=== PATIENT | female | born 1990 | race Caucasian/White ===

== ENCOUNTER 2022-01-08 10:17 | Day surgery (SDC) | payer BC ==
[~2022-01-08] VITALS: Ht 160 cm; Wt 102.5 kg
[~2022-01-08 10:17] MED LIST: CEFUROXIME 1MG/0.1ML INTRACAMERAL INJ As Ordered ONE; LIDOCAINE 1% 1ML PF SYRINGE (OR EYE CASES) As Ordered ONE; SM N120T PO
[2022-01-08] MEDS ORDERED: BSS IRRIG/VANCO(10MG)/TOBRA(5MG)/EPINEPH(1:1000-0.5CC)500ML BAG-ORONLY IR ONE ×2 (10:30→11:10)
[2022-01-08] MEDS ORDERED: CYCLOPENTOLATE 1% OPHTH SOLN 2 ML BTL OS SCH ×2 (10:45→11:10)
[2022-01-08] MEDS ORDERED: LIDOCAINE 3.5 % 1ML OPHTH TOPICAL GEL OU ONE ×2 (10:45→11:10)
[2022-01-08] MEDS ORDERED: PHENYLEPHRINE HCL 10 % OPHTH. SOL 5ML OS PRN ×2 (10:45→11:15)
[2022-01-08] MEDS ORDERED: PHENYLEPHRINE 2.5% OPHTH SOL 2ML OS SCH ×2 (10:45→11:10)
[2022-01-08] MEDS ORDERED: TROPICAMIDE 1% OPHTH SOLN 2ML OS SCH ×2 (10:45→11:10)
[2022-01-08] MEDS ORDERED: OFLOXACIN 0.3 % (OCUFLOX) OPTH SOL 5ML OS ONE ×2 (10:45→11:10)
[2022-01-08 11:45] VITALS: BP 128/92
== END 2022-01-08 12:15 | disposition home or self-care (01) ==
LOC: M SDC 10:17
PROVIDERS: ATTEND Ophthalmology
DX: H25.12 Age-related nuclear cataract, left eye (principal); D68.2 Hereditary deficiency of other clotting factors
CPT/HCPCS: 66984; 81025; J0697

== ENCOUNTER 2022-01-22 08:08 | Day surgery (SDC) | payer BC ==
[~2022-01-22] VITALS: Ht 160 cm; Wt 103.4 kg
[~2022-01-22 08:08] MED LIST changes: +BSS IRRIG/VANCO(10MG)/TOBRA(5MG)/EPINEPH(1:1000-0.5CC)500ML BAG-ORONLY IR ONE; +CYCLOPENTOLATE 1% OPHTH SOLN 2 ML BTL OD SCH; +LIDOCAINE 3.5 % 1ML OPHTH TOPICAL GEL OU ONE; +OFLOXACIN 0.3 % (OCUFLOX) OPTH SOL 5ML OD ONE; +PHENYLEPHRINE 2.5% OPHTH SOL 2ML OD SCH; +PHENYLEPHRINE HCL 10 % OPHTH. SOL 5ML OD PRN; +TROPICAMIDE 1% OPHTH SOLN 2ML OD SCH
[2022-01-22] MEDS ORDERED: fentaNYL 100 MCG/2 ML INJECTION As Ordered ONE (10:00)
[2022-01-22] MEDS ORDERED: MIDAZOLAM INJ 2MG/2ML VIAL (J2250 PER 1MG) As Ordered ONE (10:00)
[2022-01-22 10:45] VITALS: BP 110/72
== END 2022-01-22 10:50 | disposition home or self-care (01) ==
LOC: M SDC 08:08
PROVIDERS: ATTEND Ophthalmology
DX: H25.11 Age-related nuclear cataract, right eye (principal)
CPT/HCPCS: 66984; 81025; J0697; J2250; J3010